=== PATIENT | male | born 1950 | race Caucasian/White ===

== ENCOUNTER 2017-05-13 12:13 | Inpatient (IN) ==
[2017-05-13] MEDS ORDERED: DUONEB (A & A) ONE (12:22)
[2017-05-13] MEDS ORDERED: DUONEB (A & A) INH ONE (12:25)
[2017-05-13 12:29] LABS: BE 5.8 mmoll (-3.0-3.0); BLOOD TYPE ARTERIAL; DRAW SITE R BRACHIAL; METHB 1.2 % (0.0-1.5); O2(CT) 17.6 mL/dL (15.0-23.0); PCO2(98.6) 50 mmHg (35-45); PO2(98.6) 59 mmHg (60-100); SAMPLE BLOOD; THB 13.7 g/dL (11.5-17.4); pH(98.6) 7.41 (7.35-7.45)
[2017-05-13 12:34] LABS: ALLEN TEST NO; MODALITY ROOM AIR
[2017-05-13] MEDS ORDERED: SOLU-MEDROL IV ONE (12:34)
[2017-05-13 12:45] LABS: MANUAL DIFF NEEDED? NO
[2017-05-13 12:50] LABS: BASO% 0.3 % (0.0-0.8); EOS# 0.18 X1000 (0.0-0.7); HEMATOCRIT 41.5 % (42.0-52.0); HEMOGLOBIN 13.3 g/dL (14.0-18.0); IMM GRAN# 0.01 X1000 (0.0-0.04); IMM GRAN% 0.2 % (0.0-0.5); LYMPH# 0.61 X1000 (1.2-3.4); LYMPH% 10.1 % (20.5-51.1); MCH 28.3 PG (27-31); MCV 88.3 FL (81-99); MONO# 0.57 X1000 (0.11-0.59); MONO% 9.4 % (1.7-9.3); MPV 10.6 FL (7.4-10.4); PLT 202 X1000 (130-400)
[2017-05-13 13:00] LABS: AGAP 10; ALBUMIN 3.4 g/dL (3.5-5.0); ALKALINE PHOSPHATASE 85 U/L (32-122); BUN 7 mg/dL (8-22); CALCIUM 8.5 mg/dL (8.8-10.2); CHLORIDE 97 mmol/L (98-107); COSMO 278; GOT 43 U/L (10-34); GPT 15 U/L (10-44); LIPASE 15 U/L (13-60); MAGNESIUM 2.1 mg/dL (1.5-2.7); POTASSIUM 3.7 mmol/L (3.5-5.1); SODIUM 139 mmol/L (136-145); TCO2 32 mmol/L (25-35); TOTAL PROTEIN 6.7 g/dL (6.3-8.3)
[2017-05-13 13:06] LABS: INR 0.94 (0.86-1.15); PROTIME 13.3 Seconds (12.1-15.5)
[2017-05-13 13:07] LABS: PTT PL 29.2 Seconds (22.6-43.9)
[2017-05-13 13:08] LABS: CK PROFILE 563 U/L (24-204)
[2017-05-13 13:24] LABS: CK INDEX 1.2 (0.0-2.5); CK-MB 6.99 ng/mL (0.0-5.0)
--- NOTE | 2017-05-13 13:51 | Diag Imaging Result Doc PS360 ---
EXAM: CHEST-2 VIEWS HISTORY: SOB TECHNIQUE: Two views COMPARISON: 05/11/2017 FINDINGS: The lungs are hyper expanded. The heart is not enlarged. The vessels are not distended. The pulmonary vessels are small. There are no infiltrates. No pleural effusions. IMPRESSION: Emphysema Electronically signed by Beni Dinh 05/13/2017 1:48 PM
--- NOTE | 2017-05-13 13:53 | Diag Imaging Result Doc PS360 ---
EXAM: FOREARM-LEFT HISTORY: Multipl falls TECHNIQUE: Two views COMPARISON: None. FINDINGS: No fracture. No dislocation. IMPRESSION: No acute bony injury. Electronically signed by Beni Dinh 05/13/2017 1:51 PM
--- NOTE | 2017-05-13 13:54 | Diag Imaging Result Doc PS360 ---
EXAM: ELBOW 2 VIEWS LEFT HISTORY: Fall TECHNIQUE: Three views COMPARISON: None. FINDINGS: No fracture. No dislocation. IMPRESSION: No acute bony injury. Electronically signed by Beni Dinh 05/13/2017 1:51 PM
--- NOTE | 2017-05-13 13:55 | Diag Imaging Result Doc PS360 ---
EXAM: XRAY HIP W/PELVIS BILAT 3-4VWS HISTORY: multiple falls /hip pain TECHNIQUE: Five views COMPARISON: None. FINDINGS: The bones are osteopenic. No fracture to the pelvis. No fracture to either hip. No dislocation. IMPRESSION: No acute bony injury Electronically signed by Beni Dinh 05/13/2017 1:52 PM
--- NOTE | 2017-05-13 13:56 | Diag Imaging Result Doc PS360 ---
EXAM: ABDOMEN FLAT/UPRIGHT HISTORY: Abd pain TECHNIQUE: Three views COMPARISON: None. FINDINGS: No free air beneath the diaphragm. The gallbladder has been removed. No bowel obstruction. No organomegaly. No abnormal abdominal calcifications. There are pelvic phleboliths. IMPRESSION: No acute abnormality. Electronically signed by Bnei Dinh 05/13/2017 1:54 PM
--- NOTE | 2017-05-13 13:57 | EKG Report ---
Test Performed on : 05/13/2017 1:00:58 PM Test Reason : SOB Blood Pressure : / mmHG Vent. Rate : 098 BPM Atrial Rate : 098 BPM P-R Int : 124 ms QRS Dur : 080 ms QT Int : 358 ms P-R-T Axes : 077 056 074 degrees QTc Int : 457 ms Normal sinus rhythm. Normal ECG When compared with ECG of 11-MAY-2017 12:13, No significant change was found Unconfirmed Result
--- NOTE | 2017-05-13 14:00 | ED EKG INTERP ---
This chart was entered by Xiomy Del Cid Scribe, acting as scribe for Dominic Rao MD. EKG Interpretation - EKG Time of EKG reading by physician:: 13:00 EKG Read and Signed by:: Dominic Rao EKG Interpretation (*Must complete 3 of following elements*): Normal Rate: 98 Rhythm: normal sinus rhythm [place]: normal QRS: normal GA Interval: normal ST Wave: normal Attestation - Physician/ LITZY Attestation Patient care was provided by Advanced Practice Provider:: No The physician spent face to face time with patient:: Yes Advanced Practice Provider documentation review:: Supervising physician onsite and consulted in the evaluation and care of this patient. The physician did have a face to face encounter with the patient. This chart was documented by the indicated scribe, (Xiomy Del Cid Scribe) and accurately reflects the services I performed and decisions made by me, Dominic Rao MD, as attested by the provider's signature.
--- NOTE | 2017-05-13 15:19 | Extremity Venous Study ---
EXAM: Venous U/S Bilateral Legs HISTORY: B/l LE swelling with elevated D-dimer TECHNIQUE: COMPARISON: None. FINDINGS: Right: There is normal flow and compressibility of the veins of the right lower extremity. No thrombus. Normal augmentation. Left: There is normal flow and compressibility of the veins of the left lower extremity. No thrombus. Normal augmentation. IMPRESSION: No evidence of deep venous thrombosis within either lower extremity Electronically signed by Beni Dinh 05/13/2017 3:17 PM
--- NOTE | 2017-05-13 15:40 | PROVIDER DOCUMENTATION ---
This chart was entered by Xiomy Del Cid Scribe, acting as scribe for Dominic Rao MD. HPI-Respiratory General - General Chief Complaint: Shortness of Breath Stated Complaint: SOB/FALL Time Seen by Provider: 05/13/17 12:22 Source: patient Allergies/Adverse Reactions: Patient Allergies Allergy/AdvReac Type Severity Reaction Status Date / Time No Known Allergies Allergy Verified 05/11/17 13:03 Home Medications: Home Medication List Medication Instructions Recorded Confirmed Last Taken Type Unobtainable [Home Meds 05/11/17 05/11/17 Unknown History Unobtainable] - History of Present Illness-Resp Nature of Presenting Problem: Patient is a 66 year old male who presents in the ED with complaints of dyspnea and multiple falls. Patient states he has a history of COPD for which he was on hospice until recently, but states he was discharged from hospice services. He also states he wears oxygen continuously at 2.5lpm but states he not longer smokes cigarettes. He reports he has chest pain, has had multiple falls recently , and reports right hip pain. He also reports decreased urinating and diffuse bruising from falls. Quality of Pain: reports: aching, sharp Severity in ED: reports: mild, moderate Onset/Duration: reports: gradual Timing: reports: still present, changing over time, getting worse Context: denies: recent foreign travel, insect bite (possible tick), recent chemotherapy, multiple patients with similar complaints, recent URI, out of meds , sports/exercise, aspiration/choking, other Exposure: denies: unknown cause, allergen exposure, enviromental allergen exposure, common food allergen exposure, illness exposure, irritant gases exposure, new medication, mold exposure, smoke exposure, toxic exposure, other Cough Quality/Degree: reports: moderate, dry cough Episode Frequency: chronic episodes Current Respiratory Medication Therapy: Initiated other (o2 @ 2.5lpm continuously) Modifying Factors: improves with: nothing Associated Symptoms: reports: chest pain/soreness, short of breath, other ( multiple falls) Similar Symptoms Previously?: Yes Recently seen or treated by another doctor?: No Review of Systems - Adult - REVIEW OF SYSTEMS - ADULT Constitutional: reports: see HPI, other (multiple falls) Eyes: reports: no symptoms reported Ears, Nose, Mouth & Throat: reports: no symptoms reported Cardiovascular: reports: no symptoms reported Respiratory: reports: see HPI, shortness of breath Gastrointestinal: reports: no symptoms reported Genitourinary: reports: no symptoms reported Musculoskeletal: reports: see HPI, joint pain (right hip pain) Integumentary: reports: no symptoms reported Neurological: reports: no symptoms reported Psychiatric: reports: no symptoms reported Endocrine: reports: no symptoms reported Hematologic/Lymphatic: reports: no symptoms reported Allergic/Immunologic: reports: no symptoms reported All Other Systems: Reviewed and Negative Past History - Adult - PAST MEDICAL HISTORY-ADULT Review of Records: reports: Nursing Assessment Review, Medications Reviewed, Social history reviewed & non-contributory. Major Childhood Illnesses: reports: denies history Cardiovascular: reports: denies history Respiratory: reports: COPD Gastrointestinal: reports: denies history Obstetrical/Gynecological: reports: denies history Genitourinary: reports: denies history Musculoskeletal: reports: denies history Neurological: reports: denies history Endocrine/Immune: reports: Diabetes Other Conditions: reports: denies history - PRIOR SURGERIES/PROCEDURES Surgical/Procedure History: reports: appendectomy, other (liver biopsy) - IMMUNIZATION STATUS Childhood Immunizations: See Nurse Assessment Flu Vaccine: See Nurse Assessment - FAMILY HISTORY Family History: reviewed, not pertinent - SOCIAL HISTORY Smoking: non-smoker, quit greater than 1 year Substance Use: none/never Alcohol Use Frequency: never Living Situation: alone Physical Exam-General - PHYSICAL EXAM-ADULT Initial Vital Signs Reviewed: Yes - CONSTITUTIONAL General Appearance: alert, no apparent distress - EYES Eyes: PERRL/EOMI, pink conjunctivae - HEAD, EARS, NOSE, MOUTH & THROAT HENMT: normocephalic/atraumatic, moist mucous membranes - NECK Neck: full range of motion, supple - RESPIRATORY Respiratory: chest non-tender, respiratory distress, decreased breath sounds - CARDIOVASCULAR Cardiovascular: regular rate, rhythm, no edema, no gallop, no JVD, no murmur - GASTROINTESTINAL (ABDOMEN) Abdominal Exam: non tender, soft, no organomegaly, no pulsatile mass - LYMPHATIC Lymphatic: no adenopathy - MUSCULOSKELETAL Extremity: pedal edema (1+ pitting edema bilateral lower extremities), other ( right hip tender to palpation). negative: no pedal edema - SKIN Integumentary: normal color, normal turgor, warm/dry, other (diffuse ecchymosis) - NEUROLOGIC Neurologic: grossly normal, no motor/sensory deficits - PSYCHIATRIC Psych/Mental Status: normal mood/affect, oriented x 3 Progress - PLAN OF CARE/RESULTS Progress/Plan/Lab Results: Vital Signs - 8 hr 05/13/17 12:19 05/13/17 12:25 Temperature 97.3 F L Pulse Rate 92 H 95 H Respiratory Rate 26 H 36 H Blood Pressure 160/107 O2 Sat by Pulse Oximetry 94 L 96 Laboratory Results - last 24 hr 05/13/17 05/13/17 05/13/17 12:10 12:39 12:39 WBC RBC Hgb Hct MCV MCH MCHC RDW Std Deviation Plt Count MPV Immature Gran % (Auto) Neut % (Auto) Lymph % (Auto) [place] % (Auto) Eos % (Auto) Baso % (Auto) Immature Gran # (Auto) Neut # (Auto) Lymph # (Auto) [place] # (Auto) Eos # (Auto) Baso # (Auto) PT INR APTT (Factor Assay) D-Dimer Specimen Type ARTERIAL Sample Site R BRACHIAL pH 7.41 pCO2 50 H pO2 59 L HCO3 29.3 H Base Excess 5.8 H Oxyhemoglobin 91.4 L ABG O2 Sat (Calculated) 17.6 ABG O2 Saturation 95.0 ABG Carboxyhemoglobin 2.60 H ABG Methemoglobin 1.2 Yves Test NO A-a O2 Difference 28.0 Total Hemoglobin 13.7 Lactate 1.60 Blood Gas Modality ROOM AIR FiO2 % 21.0 Sodium 139 Potassium 3.7 Chloride 97 L Carbon Dioxide 32 Anion Gap 10 BUN 7 L Creatinine 0.9 Estimated GFR/1.73 m2 > 60 BUN/Creatinine Ratio 8 Glucose 139 H Calculated Osmolality 278 Calcium 8.5 L Magnesium 2.1 Total Bilirubin 0.90 AST 43 H ALT 15 Alkaline Phosphatase 85 Creatine Kinase 563 H Creatine Kinase Index 1.2 CK-MB (CK-2) 6.99 H Troponin T < 0.010 Avm-Z-Dcriswljmdz Pept Total Protein 6.7 Albumin 3.4 L Globulin 3.0 Albumin/Globulin Ratio 1.0 Lipase 15 05/13/17 05/13/17 05/13/17 12:39 12:39 12:39 WBC 6.04 RBC 4.70 Hgb 13.3 L Hct 41.5 L MCV 88.3 MCH 28.3 MCHC 32.0 L RDW Std Deviation 13.3 Plt Count 202 MPV 10.6 H Immature Gran % (Auto) 0.2 Neut % (Auto) 77.0 H Lymph % (Auto) 10.1 L [place] % (Auto) 9.4 H Eos % (Auto) 3.0 Baso % (Auto) 0.3 Immature Gran # (Auto) 0.01 Neut # (Auto) 4.65 Lymph # (Auto) 0.61 L [place] # (Auto) 0.57 Eos # (Auto) 0.18 Baso # (Auto) 0.02 PT 13.3 INR 0.94 APTT (Factor Assay) 29.2 D-Dimer 1.21 H Specimen Type Sample Site pH pCO2 pO2 HCO3 Base Excess Oxyhemoglobin ABG O2 Sat (Calculated) ABG O2 Saturation ABG Carboxyhemoglobin ABG Methemoglobin Yves Test A-a O2 Difference Total Hemoglobin Lactate Blood Gas Modality FiO2 % Sodium Potassium Chloride Carbon Dioxide Anion Gap BUN Creatinine Estimated GFR/1.73 m2 BUN/Creatinine Ratio Glucose Calculated Osmolality Calcium Magnesium Total Bilirubin AST ALT Alkaline Phosphatase Creatine Kinase Creatine Kinase Index CK-MB (CK-2) Troponin T Klp-C-Nxokcfqrmir Pept 487 H Total Protein Albumin Globulin Albumin/Globulin Ratio Lipase Orders Category Date Time Status Cardiac Monitoring DIRECTED Care 05/13/17 12:34 Active Oxygen Therapy- ED Nursing DIRECTED Care 05/13/17 12:34 Active Saline Loc NOW Care 05/13/17 12:34 Active ABDOMEN FLAT/UPRIGHT [RAD] Stat Exams 05/13/17 12:34 Completed CHEST-2 VIEWS [RAD] Stat Exams 05/13/17 12:[address] ANGIOGRM/PULMONARY ARTERIES [CT] Stat Exams 05/13/17 13:57 Taken ELBOW 2 VIEWS LEFT [RAD] Stat Exams 05/13/17 12:47 Completed FOREARM-LEFT [RAD] Stat Exams 05/13/17 12:47 Completed XRAY HIP W/PELVIS BILAT 3-4VWS [RAD] Stat Exams 05/13/17 12:44 Completed ABG [RESP] Routine Lab 05/13/17 12:10 Completed BLOOD CULTURE [BLDCUL] Stat Lab 05/13/17 12:34 Ordered CBC WITH ELECTRONIC DIFF [HEME] Stat Lab 05/13/17 12:39 Completed CK PROFILE [SP CHEM] Stat Lab 05/13/17 12:39 Completed COMPREHENSIVE METABOLIC PANEL [CHEM] Stat Lab 05/13/17 12:39 Completed D-DIMER PL [COAG] Stat Lab 05/13/17 12:39 Completed LIPASE [CHEM] Stat Lab 05/13/17 12:39 Completed MAGNESIUM [CHEM] Stat Lab 05/13/17 12:39 Completed PRO B-NATRIURETIC PEPTIDE Stat Lab 05/13/17 12:39 Completed [address]IME WITH INR PL [COAG] Stat Lab 05/13/17 12:[address] [COAG] Stat Lab 05/13/17 12:39 Completed TROPONIN T Stat Lab 05/13/17 12:[address] W/POSS RFLX CULT [URINALYSIS] Stat Lab 05/13/17 12:34 Uncollected Albuterol 2.5MG/Ipratrop 0.5MG [Duoneb (A & A)] Med 05/13/17 12:22 Discontinued 9 ml .ROUTE .STK-MED ONE Albuterol 2.5MG/Ipratrop 0.5MG [Duoneb (A & A)] Med 05/13/17 12:25 Discontinued 9 ml INH NOW ONE Methylprednisolone Sod Succ [Solu-Medrol] Med 05/13/17 12:34 Discontinued 125 mg IV NOW ONE Aerosol Treatments Stat Oth 05/13/17 12:25 Completed EKG [EKG] Stat Ther 05/13/17 12:34 Draft US [Venous U/S Bilateral Legs] Stat Ther 05/13/17 14:07 Completed Result Diagrams: 05/13/17 12:39 05/13/17 12:39 - REASSESSMENT Reassessment #1 Time Reassessed: 15:34 Status: other (Consulted Dr. Floyd - pt was discharged from hospice and Dr. Floyd's services X 2 weeks ago due to pain medication issues. Pt will be admit to Dr. Ng. This is pt's 2nd ED visit since 2 days ago for AMS and SOB recurrent falls.) - XRAY 1 XRAY Study: Pelvis Impression: Normal 2 XRAY: Left XRAY Study: Forearm Impression: Normal 3 XRAY: Left XRAY Study: Elbow Impression: Normal 4 XRAY Study: Chest (chest x-ray = emphysema), Abdomen (abdominal x-ray = normal) XRAY Interpretation: emphysema - ULTRASOUND (By Radiology) 1 US Study: Lower Ext Impression: Normal US Results: no evidence of DVT in bilateral lower extremities. - CONSULTS/PCP/HOSPITALIST Notification #1 *Consult/PCP/Hospitalist*: Dr. Ng Time Discussed: 15:30 Reason/Comments: admission Consult Disposition: Admit Departure - Departure Date of Disposition Decision: 05/13/17 Time of Disposition Decision: 15:31 DIAGNOSIS: Shortness of breath, Altered mental status Disposition: ADMITTED INPATIENT 09 Certified Medical Emergency: Emergent Condition: Stable Referrals and Follow-Ups: Jez Floyd MD [Primary Care Provider] - - Critical Care Note This patient required my direct & personal management of CC.: No Attestation - Physician/ LITZY Attestation Patient care was provided by Advanced Practice Provider:: No The physician spent face to face time with patient:: Yes Advanced Practice Provider documentation review:: Supervising physician onsite and consulted in the evaluation and care of this patient. The physician did have a face to face encounter with the patient. This chart was documented by the indicated scribe, (Xiomy Del Cid Scribe) and accurately reflects the services I performed and decisions made by me, Dominic Rao MD, as attested by the provider's signature.
--- NOTE | 2017-05-13 15:49 | Diag Imaging Result Doc PS360 ---
EXAM: CT ANGIOGRM/PULMONARY ARTERIES HISTORY: SOB with elevated D-dimer TECHNIQUE: CT chest with contrast. Pulmonary arterial protocol with MIP images COMPARISON: None FINDINGS: No pleural effusions. No cardiomegaly. No thoracic aortic aneurysm or dissection. Normal opacification of the pulmonary arteries and their major branches. There are scattered calcified granuloma with calcified subcarinal and right hilar lymph nodes severe emphysematous changes are present. Increased markings in the right apex and superiorly in the right lower lobe likely due to fibrosis. No consolidation Limited images through the upper abdomen reveal cholecystectomy and fatty infiltration of the liver IMPRESSION: 1.No pulmonary emboli 2.Severe emphysema 3.There is evidence of a prior granulomatous infection Electronically signed by Beni Dinh 05/13/2017 3:46 PM
[2017-05-13] MEDS ORDERED: ZOFRAN IV PRN (16:17)
[2017-05-13] MEDS ORDERED: NS 1,000 ML IV ONE (16:17)
[2017-05-13 17:10] LABS: URINE CULTURE PL NEEDED? NO
[2017-05-13 17:22] LABS: BILIRUBIN URINE NEGATIVE (NEGATIVE); BLOOD URINE NEGATIVE (NEGATIVE); CLARITY CLEAR (CLEAR); COLOR YELLOW; GLUCOSE URINE NEGATIVE (NEGATIVE); LEUKOCYTES URINE NEGATIVE (NEGATIVE); NITRITE URINE NEGATIVE (NEGATIVE); PROTEIN URINE TRACE mg/dL (NEGATIVE); UROBILINOGEN URINE NORMAL
[2017-05-13 17:41] LABS: URINE EPITHELIAL CELLS <10 /HPF (<10); URINE RBC <10 /HPF (<10); URINE SOURCE CLEAN CATCH; URINE WBC <10 /HPF (<10)
[2017-05-13 17:57] LABS: CK INDEX 1.3 (0.0-2.5); CK-MB 6.05 ng/mL (0.0-5.0)
--- NOTE | 2017-05-13 18:29 | HISTORY AND PHYSICAL ---
PRIMARY CARE PHYSICIAN: None. CHIEF COMPLAINT: Shortness of breath and multiple falls. HISTORY OF PRESENTING ILLNESS: This is a 66-year-old, male, who presents to [facility] ER with complaints of shortness of breath and multiple falls at home. Apparently, this patient had been a patient of hospice of [facility] and was released from their services approximately 2 weeks ago when he failed to decline and was also found to have been selling his pain medication. The patient states that it was all a big misunderstanding and that he has not been selling any of his pain medication. His primary care physician, due to this, at the time has fired him from his practice for selling his pain medication. The patient states he is no longer living with his sister, but living with anyone he can stay with. States that he has his O2 tank, but does only have what is left in them, as he does not have a provider to write his prescriptions at this time. When he arrived to the emergency room, he was saturating 94-98% on room air. Is currently on 3 L via nasal cannula saturating 94-96%. He is pale in color. States he has had multiple falls at home with ambulation and uses a cane to walk with and that this has been an ongoing problem. He was noted on his laboratory data to have an elevated D-dimer at 1.21. We did a pulmonary arteriogram that showed no pulmonary emboli and a lower extremity venous Doppler that showed no evidence of lower extremity DVT. Chest x-ray showed emphysema and so he was admitted for further evaluation and treatment. PAST MEDICAL HISTORY: COPD and diabetes. PAST SURGICAL HISTORY: Cholecystectomy, appendectomy and a liver biopsy. FAMILY HISTORY: Noncontributory. SOCIAL HISTORY: Currently, is living with different friends and family. Is a pack a day smoker and has done so for at least 40 years. Denies any alcohol or illicit drug use. ALLERGIES: He has no known drug allergies. HOME MEDICATIONS: We do not have a current list. It is unclear, since he has been released from hospice if he has any current medications. We will try to verify that. LABORATORY DATA: Showed a white blood cell count of 6.04, hemoglobin 13.3, hematocrit 41.5, platelets 202. PT and INR of 13.3 and 0.94 with a D-dimer of 1.21. ABG showed a pH of 7.41, pCO2 of 50, pO2 of 59, bicarb 29.3, oxyhemoglobin 91.4 and this was on room air. Sodium was 139, potassium 3.7, chloride 97, CO2 of 32, BUN of 7, creatinine 0.9, glucose 139, magnesium 2.1. Creatine kinase of 563 with a CK-MB of 6.99 with a troponin of less than 0.010. ProBNP of 487. DIAGNOSTIC STUDIES: Abdomen x-ray showed no acute abnormality. Chest x-ray showed emphysema. EKG showed normal sinus rhythm at 98. Hip and pelvic x-ray showed no acute bony injury. Elbow x- ray showed no acute bony injury and this is on the left elbow. Left forearm with no acute bony injury. Pulmonary arteriogram showed no evidence of a pulmonary emboli. Severe emphysema and a prior granulomatous infection. Extremities: Venous study showed no evidence of a DVT in either lower extremity. REVIEW OF SYSTEMS: He denied any fever, chills, blurred vision, dizziness, chest pain. He has had a nonproductive cough, shortness of breath. Denied any abdominal pain, constipation, diarrhea, burning or hurting with urination. PHYSICAL EXAMINATION: VITAL SIGNS: On arrival he had a pulse of 93, respirations 18, and blood pressure 161/104. Currently, he has a blood pressure of 158/91, saturating 94% on 3 L via nasal cannula. GENERAL: This is a 66-year-old, male, who is lying in the bed, answers questions. HEENT: Normocephalic and atraumatic. Pupils are equal, round, reactive to light. Extraocular movements are intact. The oropharynx and nares are clear. NECK: Supple. LUNGS: With decreased breath sounds throughout entire posterior lung alcocer. Equal lung expansion and chest wall movement noted. HEART: With regular rate and rhythm. No murmurs, rubs, or gallops. ABDOMEN: Soft, nontender, nondistended. Bowel sounds are present in all 4 quadrants. EXTREMITIES: There is no clubbing, cyanosis, or edema. NEUROLOGICAL: The cranial nerves 2-12 are grossly intact. ASSESSMENT: 1. An acute chronic obstructive pulmonary disease exacerbation. 2. Hypertension. 3. Falls, multiple at home. 4. Mild rhabdomyolysis. 5. Elevated D-dimer that was ruled out for any pulmonary embolism or deep vein thrombosis. PLAN: He was admitted to the medical unit at [facility]. Placed on telemetry. O2 per protocol. Healthy heart diet. We will recheck cardiac enzymes. He is on normal saline at 75 mL an hour. Albuterol q.4 hours. He received 1 dose of 125 mg of Solu-Medrol in the emergency room and we will give him 80 q.8 IV and wean as appropriate. We will consult social media campaign manager as it appears that due to some of his recent behaviors at home, where he was staying with his sister he is no longer there. It is unclear if he has access to home O2, which he will need with his end-stage COPD. Again, he was discharged from hospice for failure to decline and for selling his pain medications apparently, and was dismissed from his primary care physician. It is noted that the patient does deny all of this, but at this time does not have access to any medications. So social work will need to be involved. Dictated by ROSY Bradford for Matias Ng MD cc: ROSY Bradford MD
[2017-05-13] MEDS: DUONEB (A & A) INH SCH ×2 (19:33→23:38)
--- NOTE | 2017-05-13 20:05 | HISTORY AND PHYSICAL ---
ADDENDUM REPORT The patient had some wheezing on examination but no respiratory distress. Patient came in for weakness and shortness of breath. I think he has also been out of his pain medication because there has been issues with losing his hospice coverage. There was concern over possible filling of medications. He no longer has a primary physician or hospice coverage and I think he has been out of his pain medications since that time. Workup in the ER was really unremarkable except for fairly significant hypoxia. His PaO2 on his blood gas was 59. He was admitted for COPD exacerbation. We will treat his COPD exacerbation and then I think we probably do need to re- evaluate for hospice if we can find acceptance for this situation. cc: Matias Ng MD
[2017-05-13] MEDS: DOXYCYCLINE PO SCH (21:07)
[2017-05-13] MEDS: SOLU-MEDROL IV SCH (21:07)
[2017-05-13] MEDS: AMBIEN PO PRN (23:38)
[2017-05-14] MEDS: DUONEB (A & A) INH SCH ×3 (03:43→12:09)
[2017-05-14] MEDS: SOLU-MEDROL IV SCH ×3 (04:24→21:14)
[2017-05-14 05:41] LABS: AGAP 8; BUN 8 mg/dL (8-22); CALCIUM 8.2 mg/dL (8.8-10.2); CHLORIDE 102 mmol/L (98-107); COSMO 281; HEMATOCRIT 38.8 % (42.0-52.0); HEMOGLOBIN 12.1 g/dL (14.0-18.0); IMM GRAN# 0.01 X1000 (0.0-0.04); IMM GRAN% 0.3 % (0.0-0.5); LYMPH# 0.27 X1000 (1.2-3.4); LYMPH% 8.2 % (20.5-51.1); MANUAL DIFF NEEDED? NO; MCH 27.5 PG (27-31); MCHC 31.2 g/dL (33-37); MCV 88.2 FL (81-99); MONO# 0.04 X1000 (0.11-0.59); MONO% 1.2 % (1.7-9.3); MPV 10.9 FL (7.4-10.4); NEUT% 90.3 % (42.2-75.2); PLT 207 X1000 (130-400); POTASSIUM 3.8 mmol/L (3.5-5.1); SODIUM 139 mmol/L (136-145); TCO2 29 mmol/L (25-35)
[2017-05-14 06:11] LABS: CK INDEX 1.9 (0.0-2.5); CK-MB 5.75 ng/mL (0.0-5.0)
[2017-05-14] MEDS: DOXYCYCLINE PO SCH ×2 (09:07→21:14)
[2017-05-14] MEDS: TYLENOL PO PRN (09:07)
--- NOTE | 2017-05-14 11:45 | PROGRESS NOTE ---
DATE: 05/14/2017 SUBJECTIVE: Patient sitting up in bed. He states he is feeling somewhat better but a little shaky since he has not been on his home medications that included Xanax and oxycodone. Otherwise, no complaints voiced. OBJECTIVE: Vital Signs: Temperature 98.2 degrees, pulse 89, respirations 18, blood pressure 146/85, saturating 98% on 3 L via nasal cannula. General: This is a 66-year-old, male, who is sitting up in the bed and answers questions appropriately. HEENT is normocephalic and atraumatic. Pupils are equal, round, reactive to light. Extraocular movements are intact. Oropharynx and nares are clear. Neck is supple. Lungs with decreased breath sounds throughout entire posterior lung alcocer. Equal lung expansion and chest wall movement noted. O2 via nasal cannula currently in use. Heart with regular rate and rhythm. No murmurs, rubs, or gallops. Abdomen is soft, nontender, nondistended. Bowel sounds are present x4 quadrants. Extremities: No clubbing, cyanosis, or edema but the patient is noted to have multiple bruises to bilateral arms from multiple falls at home. Neurologic: The cranial nerves 2-12 are grossly intact. LABORATORY DATA: White blood cell count of 3.31, hemoglobin 12.1, hematocrit 38.8, platelets 207,000. Sodium of 139, potassium 3.8, chloride 102, CO2 of 29. BUN of 8. Creatinine 0.8, glucose of 192. Creatine kinase of 308. CK-MB of 5.75 with a negative troponin less than 0.010. ASSESSMENT AND PLAN: 1. An acute chronic obstructive pulmonary disease exacerbation. We will continue his O2 per protocol. Continue his steroids; we will decrease them down to 60 mg IV q. 8. Continue his antibiotic of doxycycline; this is day 2 of his treatment. 2. Mild rhabdomyolysis. This is improving. We will continue his normal saline at 75 mL an hour and recheck a CPK in the a.m. 3. Falls, multiple at home, will consult physical therapy. 4. Hypertension, stable. DISPOSITION: [place] will consult hospice for possible home care. Again, he was dismissed from his recent hospice carrier due to failure to decline and also was found to be selling some of his narcotics and benzodiazepines. We will call his pharmacy, [facility], in [place] and verify what medications he was on previously as he does not have a current list at this time. We will restart those as appropriate as we do not want him to go into withdrawals. He was on benzos and opiates. collar worker will also speak with his son as the patient states that it is his place that he would like to be discharged home to and make sure that he has appropriate care at home. Dictated by ROSY Bradford for Matias Ng MD cc: ROSY Bradford MD
[2017-05-14] MEDS: DUONEB (A & A) INH PRN (14:45)
[2017-05-14] MEDS ORDERED: XANAX PO ONE (15:26)
[2017-05-14] MEDS ORDERED: ATROVENT NEB INH SCH (15:30)
--- NOTE | 2017-05-14 15:55 | PROGRESS NOTE ---
DATE: 05/14/2017 SUBJECTIVE: Patient is visibly dyspneic, has audible wheezing on exam and expiratory wheezing throughout with diminished breath sounds. He seems jittery. PROBLEM LIST: COPD exacerbation. We will continue breathing treatments. I am going to change him to Xopenex. Also, as far as his chronic pain disorder, I will resume his oxycodone and Xanax to prevent withdrawal. Seen [id number] encounter. cc: Matias Ng MD
[2017-05-14] MEDS: XOPENEX NEB INH SCH ×3 (16:08→23:05)
[2017-05-14] MEDS: ATROVENT NEB INH SCH ×3 (16:08→23:04)
[2017-05-14] MEDS ORDERED: XANAX PO SCH (17:00)
[2017-05-14] MEDS: LOVENOX SUBQ SCH (17:08)
[2017-05-14] MEDS: OXYCONTIN PO SCH (18:12)
[2017-05-14] MEDS ORDERED: AMBIEN PO SCH (21:00)
[2017-05-14] MEDS: AMBIEN PO PRN (21:14)
[2017-05-14] MEDS: OXY IR PO PRN (21:14)
[2017-05-14] MEDS: MUCINEX PO SCH (21:15)
[2017-05-15] MEDS: ATROVENT NEB INH SCH ×6 (03:31→23:34)
[2017-05-15] MEDS: XOPENEX NEB INH SCH ×6 (03:32→23:34)
[2017-05-15] MEDS: SOLU-MEDROL IV SCH ×3 (05:16→21:04)
[2017-05-15] MEDS: OXYCONTIN PO SCH ×2 (05:17→17:42)
[2017-05-15 06:18] LABS: AGAP 7; BUN 10 mg/dL (8-22); CALCIUM 8.7 mg/dL (8.8-10.2); CHLORIDE 101 mmol/L (98-107); CK PROFILE 174 U/L (24-204); COSMO 280; POTASSIUM 3.3 mmol/L (3.5-5.1); SODIUM 139 mmol/L (136-145); TCO2 31 mmol/L (25-35)
[2017-05-15 06:20] LABS: HEMATOCRIT 36.6 % (42.0-52.0); HEMOGLOBIN 11.4 g/dL (14.0-18.0); MCH 27.7 PG (27-31); MCHC 31.1 g/dL (33-37); MCV 88.8 FL (81-99); MPV 10.8 FL (7.4-10.4); RBC 4.12 XMIL (4.7-6.1)
[2017-05-15] MEDS: CYMBALTA PO SCH (09:02)
[2017-05-15] MEDS: MUCINEX PO SCH ×2 (09:02→21:05)
[2017-05-15] MEDS: DOXYCYCLINE PO SCH ×2 (09:02→21:05)
[2017-05-15] MEDS: AVODART PO SCH (09:03)
[2017-05-15] MEDS ORDERED: KLOR-CON PO ONE (11:29)
[2017-05-15] MEDS: OXY IR PO PRN (12:17)
--- NOTE | 2017-05-15 13:18 | PROGRESS NOTE ---
DATE: 05/15/2017 SUBJECTIVE: Patient is sitting up in bed. States he is feeling some better today. OBJECTIVE: Vital Signs: Temperature 97.6 degrees, pulse 81 respirations 20, blood pressure 129/79, saturating 99% on 3 L. General: This is a 66-year-old, male, who is sitting up in the bed, answers questions appropriately. HEENT is normocephalic and atraumatic. Pupils are equal, round, and reactive to light. The extraocular movements are intact. The oropharynx and nares are clear. Neck is supple. Lungs with wheezing throughout entire posterior lung field. Decreased to the bases. Equal lung expansion and chest wall movement. O2 via nasal cannula is currently in use. Heart with regular rate and rhythm. No murmurs, rubs, or gallops. Abdomen is soft, nontender, nondistended. Bowel sounds are present in all 4 quadrants. Extremities: There is no clubbing, cyanosis, or edema. Neurologic: The cranial nerves 2-12 appear grossly intact. LABORATORY DATA: White blood cell count of 5.62, hemoglobin 11.4, hematocrit 36.6, platelets 195,000. Sodium 139, potassium 3.3, chloride 101, CO2 of 31. BUN of 10, creatinine 0.8, glucose of 166. Creatine kinase is back to normal at 174. ASSESSMENT AND PLAN: 1. An acute chronic obstructive pulmonary disease exacerbation. He is improved and will continue his O2, steroids. I do not think we should decrease them today as he still has pretty significant wheezing today, so, we will keep those at 60 mg IV q. 8 and continue his antibiotic of doxycycline. This is day 3 of his treatment. 2. Mild rhabdomyolysis is resolved. 3. Falls, multiple at home. Physical therapy has been consulted and following. 4. Hypertension, stable on current medication regimen. DISPOSITION: The patient states that he wants to go home, back on [facility]. He was told that he could be placed under another physician in their organization. We will check with them and verify if he can be resumed back on hospice care with them; otherwise, he will need to go home on some type of hospice therapy. We will continue his home medications at this time. Of course, the hospice that does take him back, their territory sales manager [facility] will become his primary care hopefully. We have a social work note stating that the patient's son is living in an [employer] apartment but looking to rent an apartment, so it is unclear if he will be able to go home with his son, so there may be a placement issue there. I do believe that he would benefit from some days in rehab. Dictated by ROSY Bradford for Matias Ng MD cc: ROSY Bradford MD
--- NOTE | 2017-05-15 15:07 | PROGRESS NOTE ---
DATE: 05/15/2017 Patient admitted for COPD exacerbation. Seen [id number], examined. patient has diminished breath sounds but wheezing has improved. Tremulousness has improved. For COPD exacerbation continue nebs, antibiotics and steroids and we will follow clinically. I think we can start to wean his steroids too. DISPOSITION: Hopefully hospice once we have stabilized him. cc: Matias Ng MD
[2017-05-15] MEDS: LOVENOX SUBQ SCH (15:27)
[2017-05-15] MEDS: PHENERGAN PO PRN (18:12)
[2017-05-15] MEDS: AMBIEN PO PRN (21:12)
[2017-05-16] MEDS: ATROVENT NEB INH SCH ×6 (03:27→22:35)
[2017-05-16] MEDS: XOPENEX NEB INH SCH ×6 (03:27→22:35)
[2017-05-16] MEDS: OXYCONTIN PO SCH ×2 (05:41→17:19)
[2017-05-16] MEDS: SOLU-MEDROL IV SCH ×3 (05:41→21:36)
[2017-05-16 06:15] LABS: HEMATOCRIT 37.9 % (42.0-52.0); HEMOGLOBIN 11.9 g/dL (14.0-18.0); IMM GRAN# 0.02 X1000 (0.0-0.04); IMM GRAN% 0.3 % (0.0-0.5); MANUAL DIFF NEEDED? YES; MCH 27.9 PG (27-31); MCHC 31.4 g/dL (33-37); MONO# 0.11 X1000 (0.11-0.59); MONO% 1.6 % (1.7-9.3); MPV 11.1 FL (7.4-10.4); NEUT% 95.1 % (42.2-75.2); PLT 204 X1000 (130-400); RBC 4.26 XMIL (4.7-6.1)
[2017-05-16 07:04] LABS: AGAP 9; BUN 20 mg/dL (8-22); CALCIUM 8.8 mg/dL (8.8-10.2); CHLORIDE 98 mmol/L (98-107); COSMO 280; POTASSIUM 3.9 mmol/L (3.5-5.1); SODIUM 137 mmol/L (136-145); TCO2 30 mmol/L (25-35)
[2017-05-16 07:35] LABS: LYMPHS 7 % (21-51); MONO 4 % (1-9)
[2017-05-16] MEDS: AVODART PO SCH (09:07)
[2017-05-16] MEDS: MUCINEX PO SCH ×2 (09:07→21:36)
[2017-05-16] MEDS: CYMBALTA PO SCH (09:07)
[2017-05-16] MEDS: DOXYCYCLINE PO SCH ×2 (09:07→21:36)
--- NOTE | 2017-05-16 09:23 | PROGRESS NOTE ---
DATE: 05/16/2017 SUBJECTIVE: Patient sitting up in bed. States he was having a coughing spell but recovered well. No other complaints voiced. OBJECTIVE: Vital signs: Temp 97.6 degrees, pulse 102, respirations 18, blood pressure 141/92, saturating 98% on 3 L. General: This is a 66-year-old male who is sitting up in the bed, answers questions appropriately. HEENT: Normocephalic and atraumatic. Oropharynx and nares are clear. Neck: Supple. Lungs: With wheezes throughout entire posterior lung alcocer. Equal lung expansion and chest wall movement noted and O2 via nasal cannula in place. Heart: Regular rate and rhythm. No murmurs, rubs, or gallops. Abdomen: Soft , nontender, nondistended. Bowel sounds are present x4 quadrants. Extremities: No clubbing, cyanosis, or edema. Patient is noted to have multiple bruises to his bilateral upper arms from frequent falls at home. Neurological: The cranial nerves 2 through 12 are grossly intact. LABORATORY DATA: Showed a white blood cell count of 6.73, hemoglobin 11.9, hematocrit 37.9, platelets 204,000. Sodium 137, potassium 3.9, chloride 98, CO2 30, BUN of 20, with a creatinine of 0.8, glucose 155. ASSESSMENT AND PLAN: 1. Acute chronic obstructive pulmonary disease exacerbation. We will continue his O2, steroids, and antibiotics. This is day 4 of his antibiotic treatment. 2. Falls, multiple at home. Physical therapy is following. 3. Hypertension. Stable on current medication regimen. DISPOSITION: The patient continues to want to go back on hospice with [facility]. We will call them in the morning and discuss his options also with social work and whether or not he has a place to live with his son still has to be completely verified. So again, it may be a placement issue there and would most likely benefit from some days in rehab to get stronger due to the multiple falls, so will also have social work look into that. Dictated by ROSY Bradford for Matias Ng MD cc: ROSY Bradford MD pt examined, agree with above, pt examined, seen face to face, pt has a copd exacerbation, pulmonary exam shows wheezing throughout but imporved since yesterday, continue abx/steroids, adjust pain rx, as above working on setting up with hospice tomorrow APENOT MTDD
[2017-05-16] MEDS: OXY IR PO PRN (15:07)
[2017-05-16] MEDS ORDERED: XOPENEX NEB ONE (15:30)
[2017-05-16] MEDS: LOVENOX SUBQ SCH (15:50)
[2017-05-16] MEDS ORDERED: LOVENOX SUBQ SCH (16:00)
[2017-05-16] MEDS: DUONEB (A & A) INH PRN (18:10)
[2017-05-17] MEDS: XOPENEX NEB INH SCH ×6 (03:41→23:39)
[2017-05-17] MEDS: ATROVENT NEB INH SCH ×6 (03:41→23:39)
[2017-05-17 05:43] LABS: HEMATOCRIT 36.6 % (42.0-52.0); HEMOGLOBIN 11.3 g/dL (14.0-18.0); MCH 27.7 PG (27-31); MCHC 30.9 g/dL (33-37); MCV 89.7 FL (81-99); MPV 10.7 FL (7.4-10.4); RBC 4.08 XMIL (4.7-6.1)
[2017-05-17] MEDS: OXYCONTIN PO SCH ×2 (05:54→17:19)
[2017-05-17] MEDS: SOLU-MEDROL IV SCH ×3 (05:55→22:30)
[2017-05-17 06:10] LABS: AGAP 6; BUN 24 mg/dL (8-22); CALCIUM 8.6 mg/dL (8.8-10.2); CHLORIDE 100 mmol/L (98-107); COSMO 281; POTASSIUM 4.3 mmol/L (3.5-5.1); SODIUM 138 mmol/L (136-145); TCO2 33 mmol/L (25-35)
[2017-05-17] MEDS: MUCINEX PO SCH ×2 (08:51→22:30)
[2017-05-17] MEDS: DOXYCYCLINE PO SCH ×2 (08:52→22:30)
[2017-05-17] MEDS: AVODART PO SCH (08:52)
[2017-05-17] MEDS: CYMBALTA PO SCH (08:52)
[2017-05-17] MEDS: OXY IR PO PRN ×2 (10:58→22:30)
--- NOTE | 2017-05-17 11:43 | PROGRESS NOTE ---
DATE: 05/17/2017 SUBJECTIVE: Mr. Street is sitting up in bed. He denies any shortness of breath, chest pain, any fever or chills. OBJECTIVE: Vital Signs: Blood pressure is 145/90, with a heart rate of 96, respirations are 18, temperature is 97.7 degrees oral with O2 saturations of 96-100% on 3 L nasal cannula. General: This is a 66-year-old male who is sitting up in the bed in no distress. Cardiovascular: Regular rate and rhythm. S1 and S2 appreciated. No rubs, murmurs, or gallops noted. Pulmonary: Breath sounds with fine. Expiratory wheezes noted throughout. Chest does rise and fall symmetrically with respiration. No increased work of breathing noted. He is using supplemental oxygen. Gastrointestinal: Abdomen is soft, nontender, nondistended with bowel sounds in all 4 quadrants. Extremities: No clubbing, cyanosis, or edema. Calves are nontender. Pulses are palpable x4. Skin: Warm and dry with multiple bruises in different stages of healing to bilateral upper arms from frequent falls. LABORATORY DATA: WBC is 5.0 with a hemoglobin 11.3, hematocrit 36.6, and platelets of 187,000. Sodium is 138, potassium 4.3, BUN is 24, creatinine 0.9 with glucose ranging from 120 to 150s. ASSESSMENT AND PLAN: 1. Chronic obstructive pulmonary disease exacerbation. We will continue with supplemental oxygen. Antibiotics, this is day 5 of doxycycline. We will continue. We will wean steroids slowly. 2. Falls. Multiple falls at home. We will continue with physical therapy. 3. Hypertension. Blood pressures are stable on his current medication regimen. 4. Disposition: Mr. Street continues to want to go back on hospice with [facility]. Social work will call and discuss this with Hospice today. We are awaiting placement as his son is currently living in an [employer] apartment and he is attempting to get an apartment so that the patient can live with him. Due to his weakness, he would benefit from rehab although the patient continues to refuse wanting to go home. We will await update from social media manager. Dictated by ROSY Madden for Jez Floyd MD cc: ROSY Madden MD
[2017-05-17] MEDS: LOVENOX SUBQ SCH (16:08)
--- NOTE | 2017-05-17 20:36 | PROGRESS NOTE ---
DATE: 05/17/2017 SUBJECTIVE: Patient seen and examined by myself. Full note dictated by nurse practitioner. Patient is sitting in chair talking to his son. He is awake, alert. He is in no distress. States overall he is feeling better. He is still having some shortness of breath, but this is chronic and any feels pretty close back to his baseline. OBJECTIVE: General: The patient is awake, alert. He is in no distress. He is feeling better. Lungs: He has very poor air movement, but this is chronic in nature and unlikely to change. ASSESSMENT: We will continue to follow. Decrease his steroids. Decrease his medication. Hopefully home in the next 1-2 days when his son has a room available. cc: Jez Floyd MD
[2017-05-18] MEDS: ATROVENT NEB INH SCH ×6 (03:47→23:42)
[2017-05-18] MEDS: XOPENEX NEB INH SCH ×6 (03:48→23:42)
[2017-05-18] MEDS: OXYCONTIN PO SCH ×2 (05:48→17:33)
[2017-05-18] MEDS: SOLU-MEDROL IV SCH ×3 (05:48→21:30)
[2017-05-18 06:35] LABS: AGAP 8; BUN 29 mg/dL (8-22); CALCIUM 8.6 mg/dL (8.8-10.2); CHLORIDE 97 mmol/L (98-107); COSMO 287; POTASSIUM 4.4 mmol/L (3.5-5.1); SODIUM 140 mmol/L (136-145); TCO2 35 mmol/L (25-35)
[2017-05-18] MEDS ORDERED: ATIVAN IV ONE (08:23)
[2017-05-18 09:47] LABS: ALBUMIN 3.1 g/dL (3.5-5.0); ALKALINE PHOSPHATASE 59 U/L (32-122); DIRECT BILIRUBIN < 0.20 mg/dL (0.00-0.20); GOT 36 U/L (10-34); GPT 20 U/L (10-44); TOTAL PROTEIN 5.8 g/dL (6.3-8.3)
[2017-05-18] MEDS: CYMBALTA PO SCH (10:28)
[2017-05-18] MEDS: DOXYCYCLINE PO SCH ×2 (10:28→21:31)
[2017-05-18] MEDS: MUCINEX PO SCH ×2 (10:28→21:30)
[2017-05-18] MEDS: AVODART PO SCH (10:29)
[2017-05-18] MEDS: XANAX PO SCH ×3 (15:12→21:30)
[2017-05-18] MEDS: LOVENOX SUBQ SCH ×2 (15:12→15:17)
[2017-05-18] MEDS ORDERED: HALDOL IV PRN (15:23)
--- NOTE | 2017-05-18 15:46 | PROGRESS NOTE ---
DATE: 05/18/2017 SUBJECTIVE: Patient has no focal complaints. OBJECTIVE: Vital signs: Blood pressure 150/97, heart rate 98, respiratory rate 20, temperature degrees 98.2 degrees, 100% on 2.5 L. Cardiovascular: Regular rate and rhythm. Pulmonary: Bilateral breath sounds. Clear to auscultation. GI: Soft, nontender, nondistended. Bowel sounds are positive. Extremities: No clubbing or cyanosis. Lymphatics: No peripheral edema. Neurological: Nonfocal. LABORATORY DATA: Basic today looks okay although BUN is up a little bit at 29. PROBLEM LIST: 1. Acute encephalopathy. Patient is just night and day from two days ago. He is very agitated. He was refusing treatment. So I am not sure what I is going on here. We will start the workup for delirium, ABG, urine, a head CT is a possibility although he does not have not any focal deficits. Apparently, his Xanax was not resumed, so he certainly could be going through withdrawal, although I think he had been out of the medications for several days before he came to the hospital on admission. It is possible he could be withdrawing from his benzodiazepines, which we resumed today, but he is very agitated. He may require further sedation. He is not on any medications which should cause agitation. We have slowly been adding his [place] back. He is usually on 90 q.12 with an 80 dose right in the middle. I guess we will increase his OxyContin a little bit, too, just to make sure he is not getting too little pain medication, but it feels like there is another process going on. 2. COPD exacerbation. Still seems to be a chronic issue for him. He is not wheezing badly today. I am going to cut down on his steroids in case that may be contributing to his confusion. DISPOSITION: Difficult situation in that it is not clear he has a domicile to be discharged to #1 and that he will need likely hospice at discharge which his last hospice had fired him. We will continue to follow. cc: Matias Ng MD
[2017-05-18 15:48] LABS: URINE SOURCE CLEAN CATCH
[2017-05-18 15:50] LABS: CLARITY SLIGHTLY CLOUDY (CLEAR); COLOR YELLOW; URINE CULTURE PL NEEDED? YES; URINE EPITHELIAL CELLS <10 /HPF (<10); URINE RBC TNTC /HPF (<10); URINE WBC <10 /HPF (<10)
[2017-05-18 15:51] LABS: BILIRUBIN URINE NEGATIVE (NEGATIVE); BLOOD URINE 4+ (NEGATIVE); GLUCOSE URINE NEGATIVE (NEGATIVE); LEUKOCYTES URINE 1+ (NEGATIVE); NITRITE URINE POSITIVE (NEGATIVE); PH URINE 6.5; PROTEIN URINE 2+(100 mg/dL) mg/dL (NEGATIVE); SP GRAVITY URINE 1.015; UROBILINOGEN URINE NORMAL
[2017-05-18 15:59] LABS: UR AMPHETAMINES QUAL NONE DETECTED (NONE DETECT); UR BARBITUATES QUAL NONE DETECTED (NONE DETECT); UR BENZODIAZEPIN QUAL PRESUMPTIVE POSITIVE (NONE DETECT); UR CANNABINOIDS QUAL NONE DETECTED (NONE DETECT); UR COCAINE QUAL NONE DETECTED (NONE DETECT); UR MDMA QUAL NONE DETECTED (NONE DETECT); UR METHADONE QUAL NONE DETECTED (NONE DETECT); UR METHAMPHETAMINE QUAL NONE DETECTED (NONE DETECT); UR OPIATES QUAL NONE DETECTED (NONE DETECT); UR OXYCODONE QUAL PRESUMPTIVE POSITIVE (NONE DETECT); UR PCP QUAL NONE DETECTED (NONE DETECT); UR TCA QUAL NONE DETECTED (NONE DETECT)
[2017-05-18 16:07] LABS: BE 12.9 mmoll (-3.0-3.0); BLOOD TYPE ARTERIAL; DRAW SITE R RADIAL; METHB 1.3 % (0.0-1.5); O2(CT) 17.1 mL/dL (15.0-23.0); PO2(98.6) 91 mmHg (60-100); SAMPLE BLOOD; SAO2 98.8 % (95.0-100.0); THB 12.6 g/dL (11.5-17.4); pH(98.6) 7.44 (7.35-7.45)
[2017-05-18 16:17] LABS: MODALITY CANNULA; PCO2(98.6) 58 mmHg (35-45)
[2017-05-18 16:18] LABS: ALLEN TEST YES
[2017-05-18] MEDS: OXY IR PO PRN (21:30)
[2017-05-18] MEDS: AMBIEN PO PRN (21:30)
[2017-05-18] MEDS: PHENERGAN PO PRN (21:31)
[2017-05-19] MEDS: ATROVENT NEB INH SCH ×6 (03:49→23:17)
[2017-05-19] MEDS: XOPENEX NEB INH SCH ×6 (03:50→23:18)
[2017-05-19] MEDS: OXYCONTIN PO SCH ×3 (05:45→17:50)
[2017-05-19] MEDS: SOLU-MEDROL IV SCH ×2 (05:45→17:44)
[2017-05-19] MEDS: XANAX PO SCH ×3 (05:48→21:52)
[2017-05-19 06:21] LABS: HEMATOCRIT 37.1 % (42.0-52.0); HEMOGLOBIN 11.4 g/dL (14.0-18.0); MCH 27.4 PG (27-31); MCHC 30.7 g/dL (33-37); MCV 89.2 FL (81-99); RBC 4.16 XMIL (4.7-6.1)
[2017-05-19 07:00] LABS: AGAP 6; BUN 29 mg/dL (8-22); CALCIUM 8.2 mg/dL (8.8-10.2); CHLORIDE 98 mmol/L (98-107); COSMO 286; POTASSIUM 4.1 mmol/L (3.5-5.1); SODIUM 139 mmol/L (136-145); TCO2 36 mmol/L (25-35)
[2017-05-19] MEDS: CYMBALTA PO SCH (09:59)
[2017-05-19] MEDS: MUCINEX PO SCH ×2 (09:59→21:07)
[2017-05-19] MEDS: AVODART PO SCH (10:00)
[2017-05-19] MEDS: DOXYCYCLINE PO SCH ×2 (10:00→21:07)
[2017-05-19] MEDS: LOVENOX SUBQ SCH (16:39)
--- NOTE | 2017-05-19 17:42 | PROGRESS NOTE ---
DATE: 05/19/2017 SUBJECTIVE: Patient is sitting up in bed watching TV with no complaint. OBJECTIVE: Vital signs: Blood pressure is 130/90, with a heart rate of 91, respirations are 18, temperature is 97.7 degrees oral with O2 saturations of 93-100% on 3 L nasal cannula. Cardiovascular: Regular rate and rhythm. S1, S2 appreciated. Pulmonary: Scattered wheezes throughout with no increased work of breathing noted. Gastrointestinal: Abdomen is soft, nontender, nondistended with bowel sounds in all 4 quadrants. Extremities: No clubbing, cyanosis, or edema. Calves are nontender and pulses are palpable x4. DIAGNOSTICS: WBC is 4.4, with hemoglobin of 11.4, hematocrit 37.1, and platelets of 194,000. Sodium is 139, potassium 4.1, BUN 29, creatinine 0.8, with a glucose of 145. PROBLEM LIST: 1. Acute encephalopathy. Patient is less agitated today. He has refused last treatment. He has been more cooperative. We will continue his OxyContin as well as his Xanax. 2. Chronic obstructive pulmonary disease exacerbation. This is chronic for him. He does have some scattered wheezes although they are much less than before. We will continue with his treatments with steroids to taper. DISPOSITION: Social Work Services did reach the patient's son who desires to take the patient home with him. [facility] and they will see the patient in the morning. Dictated by ROSY Madden for Jez Floyd MD cc: ROSY Madden MD
[2017-05-19] MEDS: PHENERGAN PO PRN (21:07)
[2017-05-19] MEDS: OXY IR PO PRN (21:07)
--- NOTE | 2017-05-19 21:07 | PROGRESS NOTE ---
DATE: 05/19/2017 SUBJECTIVE: The patient this morning was quite somnolent as he has just recently had Haldol. He is in no respiratory distress. He had a very eventful night. Staff notes that he was calm, alert, and then became very agitated, irritated, became violent, started swinging, cussing and threatening the staff. He required Haldol for physical restraint. PHYSICAL: Vital signs currently stable. Patient is somnolent, but in no distress. He is lying flatly in the bed. Temperature 98 degrees, pulse 104, respiratory 20, BP 166/74. General: Patient is lying in bed snoring. HEENT: Normocephalic, atraumatic. Neck: Supple. No JVD. CV: Regular rate. Chest: Relatively clear. Positive sonorous breath sounds. No current crackles. Abdomen: Soft, nondistended. Extremities: No edema. Neurologic: Unable to assess due to patient's current somnolent state. ASSESSMENT: 1. Acute encephalopathy. Certainly I agree with Dr. Ng this could be benzodiazepine withdrawal as he has recently stopped. Patient has been on benzodiazepines for quite some time and has been very recalcitrant and reluctant to wean down. 2. Chronic opiate abuse. Again patient has been very recalcitrant to wean. 3. Chronic pain. 4. Chronic obstructive pulmonary disease. PLAN: Hopefully, the patient can be discharged home soon. We will continue to follow. We will use Haldol on strictly as needed basis. cc: Jez Floyd MD
[2017-05-20] MEDS: XANAX PO SCH ×3 (04:05→19:21)
[2017-05-20] MEDS: SOLU-MEDROL IV SCH ×2 (04:05→16:26)
[2017-05-20] MEDS: ATROVENT NEB INH SCH ×6 (04:19→22:40)
[2017-05-20] MEDS: XOPENEX NEB INH SCH ×6 (04:19→22:40)
[2017-05-20] MEDS: OXYCONTIN PO SCH ×3 (06:21→18:19)
[2017-05-20] MEDS: CYMBALTA PO SCH (08:49)
[2017-05-20] MEDS: AVODART PO SCH (08:49)
[2017-05-20] MEDS: MUCINEX PO SCH ×2 (08:49→20:40)
[2017-05-20] MEDS: DOXYCYCLINE PO SCH ×2 (08:49→20:40)
[2017-05-20] MEDS: OXY IR PO PRN (08:51)
[2017-05-20] MEDS: LOVENOX SUBQ SCH (16:26)
[2017-05-20] MEDS: TYLENOL PO PRN (21:56)
[2017-05-21] MEDS: OXY IR PO PRN ×2 (00:08→10:04)
[2017-05-21] MEDS: AMBIEN PO PRN (00:08)
[2017-05-21] MEDS: XANAX PO SCH ×2 (02:17→10:01)
[2017-05-21] MEDS: XOPENEX NEB INH SCH ×3 (03:10→11:04)
[2017-05-21] MEDS: ATROVENT NEB INH SCH ×3 (03:10→11:03)
[2017-05-21] MEDS: SOLU-MEDROL IV SCH (04:05)
--- NOTE | 2017-05-21 05:16 | PROGRESS NOTE ---
DATE: 05/20/2017 SUBJECTIVE: Patient currently is sleeping. He is arousable. No new complaints. OBJECTIVE: Vital Signs: Reviewed. Temperature 97.4 degrees, pulse 86, respiratory 18, BP 121/79. General: Patient is awake, alert. He is in no distress. Neck: Supple. Cardiovascular: Regular rate. Chest: Decreased breath sounds bilaterally but equal. No apparent wheezing. Abdomen: Soft. ASSESSMENT: 1. Acute metabolic encephalopathy. The patient continues to have trouble with being acutely confused. 2. Chronic opiate abuse. 3. Chronic benzodiazepine abuse. 4. Chronic chronic obstructive pulmonary disease. 5. Chronic hypoxemia. We will continue patient on his current medication regimen. We will continue to follow. Hopefully can be arranged with hospice and home soon. cc: Jez Floyd MD
[2017-05-21] MEDS: OXYCONTIN PO SCH ×2 (05:27→13:10)
[2017-05-21 08:23] VITALS: BP 132/79
[2017-05-21] MEDS: DOXYCYCLINE PO SCH (10:00)
[2017-05-21] MEDS: CYMBALTA PO SCH (10:00)
[2017-05-21] MEDS: MUCINEX PO SCH (10:00)
[2017-05-21] MEDS: AVODART PO SCH (10:01)
--- NOTE | 2017-05-21 21:53 | PROGRESS NOTE ---
DATE: 05/21/2017 SUBJECTIVE: Patient without any complaints today. Denies any chest pain, palpitations, states that he is still short of breath but notes this has not changed. He is sitting in the room talking with the respiratory therapist. OBJECTIVE: Vital signs: Temperature 97.5 degrees pulse 86, respiratory 16, BP 121/79. General: Patient is awake, alert, he is oriented this morning in fact he is much more oriented than yesterday he is sitting there talking respiratory therapist telling about going home to his son's house. He is asking if he be able to go home today. He recognizes me. Neck: Supple. No JVD. CV: Regular rate. Chest: Greatly decreased breath sounds but equal bilaterally, mildly labored but this is his baseline. Abdomen: Soft nondistended. Extremities: Moves all extremities . Neuro: No focal changes this morning from his chronic baseline. ASSESSMENT: 1. Chronic obstructive pulmonary disease with marked exacerbation. 2. Chronic pain medication usage. 3. Chronic benzodiazepine usage. 4. Acute encephalopathy certainly may have been benzodiazepine withdrawal. This has been replaced and he is doing better. PLAN: Hopefully patient can be discharged home to his son's house [facility]. cc: Jez Floyd MD
--- NOTE | 2017-05-22 05:27 | DISCHARGE SUMMARY ---
ADMISSION DATE: 05/13/2017 DISCHARGE DATE: 05/21/2017 DIAGNOSES: 1. Acute metabolic encephalopathy with continuing episodes of being acutely confused. 2. Acute chronic obstructive pulmonary disease exacerbation, resolved. 3. Hypertension. 4. Mild rhabdomyolysis, resolved. 5. Chronic hypoxemia. 6. Chronic benzodiazepine abuse. 7. Chronic opiate abuse. DIAGNOSTICS: 1. 05/13/2017, abdominal x-ray revealed no acute abnormality. 2. 05/13/2017, chest x-ray revealed emphysema. 3. 05/13/2017, hip and pelvis x-ray revealed no acute bony injury. 4. 05/13/2017, left elbow reveals no fracture and no dislocation. 5. 05/13/2017, left forearm reveals no fracture and no dislocation. 6. 05/13/2017, pulmonary arteriogram with no pulmonary emboli, severe emphysema. 7. 05/13/2017, bilateral lower extremity Doppler reveals no evidence of deep vein thrombosis within either lower extremity. 8. Microbiology, urine culture revealed no growth. Blood cultures x2 revealed no growth after 5 days. HOSPITAL COURSE: Mr. Street presented to the emergency room complaining of shortness of breath and multiple falls. Evidently, the patient had been a patient of [facility] although he was released from their services 2 weeks prior to discharge after reportedly having found to have been selling his pain medications and it should be noted that he also lost his primary care physician during this time due to the same reasons. He had been staying with his sister but for the same reasons he is no longer living with her so he has been living with anyone he can stay with. He was found to be in acute COPD exacerbation. He was treated with DuoNeb q.4 with q.2 hours p.r.n., supplemental oxygen, steroids to taper. We did continue his home medications as appropriate. He received antibiotic coverage of doxycycline. He did have an elevated D-dimer with a negative lower extremity Doppler as well as a pulmonary arteriogram. During the hospitalization, he has had intermittent episodes of acute confusion. structural steel worker apprentice did speak with the patient's son who is willing to take the patient home with hospice and he was evaluated by [facility] yesterday. They have agreed to accept the patient. Therefore, thankfully he is able to be discharged to his son's home under their care and guidance. DISCHARGE PHYSICAL EXAMINATION: Cardiovascular: Regular rate and rhythm. S1 and S2 appreciated. Pulmonary: Breath sounds are diminished with prolonged expiration. He does have some scattered expiratory wheezes. Gastrointestinal: Abdomen is soft, nontender, nondistended with bowel sounds in all 4 quadrants. Extremities: No clubbing, cyanosis, or edema. Pulses are palpable x4. Neurologic: He is alert. He is oriented. He does follow commands. Genitourinary: Reynolds catheter has been removed with a voiding trial. Discharge Vital Signs: Blood pressure is 132/79 with a heart rate of 97, respirations are 18, temperature is 97.7 degrees axillary, with O2 saturations of 96-97% on 3 L nasal cannula. DISCHARGE MEDICATIONS: 1. Ambien 5 mg at bedtime p.r.n. 2. Phenergan 25 mg q.6 hours p.r.n. 3. OxyContin 80 mg p.o. q.12 hours. 4. Oxy IR 30 mg q.6 hours p.r.n. 5. OxyContin ER 40 mg p.o. at noon. 6. Cymbalta 60 mg daily. 7. Xanax 1 mg p.o. q.8 hours. 8. Mucinex 600 mg p.o. b.i.d. 9. Prednisone 20 mg daily. 10. Senokot 1-4 tabs b.i.d. 11. Avodart 0.5 p.o. daily. FOLLOWUP: He will be discharged under the care of [facility]. Any followup or physician visits will be arranged per their managing physician. He will be discharged home to his son's home under the care of [facility] in stable condition. TIME SPENT: This is a greater than 30 minute discharge. Dictated by ROSY Madden for Jez Floyd MD cc: ROSY Madden MD
== END 2017-05-21 16:12 | disposition hospice, home (50) ==
LOC: P.ED 12:13 → SUATTDRO 15:55 → P.MEDSURG 15:55
PROVIDERS: ATTEND Family Medicine